=== PATIENT | male | born 1995 | race African-American/Black ===

== ENCOUNTER 2017-01-06 11:43 | Emergency (ER) | payer MEDICAID ==
[~2017-01-06] VITALS: Ht 182.9 cm; Wt 68.1 kg
[2017-01-06 11:59] VITALS: BP 128/82
== END 2017-01-06 13:31 | disposition home or self-care (01) ==
LOC: ED 13:24
DX: S46.011A Strain of muscle(s) and tendon(s) of the rotator cuff of right shoulder, initial encounter (principal); V43.52XA Car driver injured in collision with other type car in traffic accident, initial encounter; Y93.89 Activity, other specified; Y99.8 Other external cause status; Y92.410 Unspecified street and highway as the place of occurrence of the external cause
CPT/HCPCS: 99284